=== PATIENT | male | born 1950 | race Caucasian/White ===

== ENCOUNTER 2024-01-29 09:06 | Inpatient (IN) | payer MEDICARE ==
[2024-01-29] MEDS ORDERED: Polyethylene Glycol 3350 Powder 17 GM Packet PO PRN (14:07)
[2024-01-29] MEDS ORDERED: Melatonin 3 MG Tab PO PRN (14:07)
[2024-01-29] MEDS ORDERED: guaiFENesin 600 MG Tab.ER PO PRN (15:24)
[2024-01-29] MEDS ORDERED: oxyCODONE 5 MG Tab PO PRN (15:24)
[2024-01-29] MEDS ORDERED: Acetaminophen 325 MG Tab PO PRN (15:24)
[2024-01-29] MEDS: Labetalol 20 MG/4 ML Syringe IVPUSH ONE (15:38)
[2024-01-29] MEDS ORDERED: Labetalol 20 MG/4 ML Syringe IVPUSH PRN (16:06)
[2024-01-29 16:55] LABS: BILIRUBIN,URINE NEGATIVE (NEGATIVE); GLUCOSE,URINE >1000 mg/dL (NORMAL); KETONES,URINE NEGATIVE (NEGATIVE); LEUKOCYTE ESTERASE,URINE NEGATIVE (NEGATIVE); NITRITE,URINE NEGATIVE (NEGATIVE); OCCULT BLOOD,URINE LARGE (NEGATIVE); PROTEIN,URINE NEGATIVE (NEGATIVE); UROBILINOGEN,URINE 1 mg/dL (NEGATIVE)
[2024-01-29 16:57] LABS: APPEARANCE,URINE CLEAR (CLEAR); BACTERIA,URINE FEW (NS); COLOR,URINE YELLOW (YELLOW); RBC,URINE 20-30 (0-5); SQUAMOUS EPITHELIAL CELLS,UR FEW (NS,R,O); WBC,URINE 0-5 (0-5)
[2024-01-29] MEDS: metFORMIN 500 MG Tab PO SCH (17:16)
[2024-01-29] MEDS: atorvaSTATin 40 MG Tab PO SCH (17:16)
[2024-01-29] MEDS: Tamsulosin 0.4 MG Cap.ER PO SCH (17:16)
[2024-01-29] MEDS: Pantoprazole 40 MG Tab.CR PO SCH (17:17)
[2024-01-29] MEDS: Metoprolol Tartrate 25 MG Tab PO SCH (21:10)
[2024-01-30] MEDS ORDERED: Empagliflozin 25 MG Tab PO SCH ×2 (09:00)
[2024-01-30] MEDS: Furosemide 40 MG Tab PO SCH (09:22)
[2024-01-30] MEDS: Aspirin 81 MG Tab.EC PO SCH (09:22)
[2024-01-30] MEDS: Ferrous Sulfate 325 MG Tab PO SCH (09:22)
[2024-01-30] MEDS: Lisinopril 5 MG Tab PO SCH (09:23)
[2024-01-30] MEDS: Clopidogrel 75 MG Tab PO SCH (09:23)
[2024-01-30] MEDS: Multivitamins with Iron/Calcium/Folic Acid/Minerals Tab PO SCH (09:23)
[2024-01-31] MEDS: Sodium Chloride 0.9% 10 ML Syringe FLUSH PRN (12:48)
[2024-01-31] MEDS ORDERED: 50% Dextrose in Water 50 ML Syringe IVPUSH PRN (17:19)
[2024-01-31] MEDS ORDERED: Glucagon,Human Recombinant 1 MG Vial IM PRN (17:19)
[2024-01-31] MEDS ORDERED: Insulin Lispro 100 Unit/ML 3 ML KwikPen SUBCUT ONE (17:42)
[2024-01-31] MEDS: Insulin Lispro 100 Unit/ML 3 ML KwikPen SUBCUT SCH (17:43)
[2024-02-04] MEDS: Acetaminophen 325 MG Tab PO PRN (08:57)
[2024-02-05] MEDS ORDERED: Sodium Chloride 0.65% Nasal Spray 45 ML Bottle NAS PRN (09:41)
[2024-02-05] MEDS: Acetaminophen/HYDROcodone 325-7.5 MG Tab PO PRN (12:06)
[2024-02-05 12:12] LABS: HEMATOCRIT 27.1 % (38.3-50.1); MEAN CORPUSCULAR HEMOGLOBIN 29.5 pg (27.0-33.3); MEAN CORPUSCULAR HGB CONC 33.2 g/dL (28.7-35.3); RED BLOOD CELL COUNT 3.04 x10(6)uL (3.90-5.90); RED CELL DISTRIBUTION WIDTH 16.7 % (12.4-15.0); WHITE BLOOD CELL COUNT,WBC 10.4 x10-3/uL (3.2-10.1)
[2024-02-05 12:15] LABS: BLOOD UREA NITROGEN,BUN 23 mg/dL (7-18); BUN/CREATININE RATIO 20.9 (9-20); CALCIUM 8.5 mg/dL (8.6-10.2); CARBON DIOXIDE,CO2 27 mmol/L (21-32); CHLORIDE,CL 102 mmol/L (100-110); CREATININE 1.1 mg/dL (0.70-1.30); EST CRCL DRUG DOSING (CG) 69.61 mL/min; ESTIMATED GFR 72 mL/min (>60); GLUCOSE RANDOM 191 mg/dL (80-116); POTASSIUM,K 3.5 mmol/L (3.5-5.3); SODIUM,NA 136 mmol/L (135-145)
[2024-02-08 03:15] LABS: BILIRUBIN,URINE NEGATIVE (NEGATIVE); GLUCOSE,URINE NORMAL (NORMAL); KETONES,URINE NEGATIVE (NEGATIVE); LEUKOCYTE ESTERASE,URINE MODERATE (NEGATIVE); NITRITE,URINE NEGATIVE (NEGATIVE); OCCULT BLOOD,URINE LARGE (NEGATIVE); PROTEIN,URINE 30 mg/dL (NEGATIVE); UROBILINOGEN,URINE 4 mg/dL (NEGATIVE)
[2024-02-08 03:22] LABS: APPEARANCE,URINE SLIGHTLY CLOUDY (CLEAR); COLOR,URINE YELLOW (YELLOW)
[2024-02-08 03:23] LABS: BACTERIA,URINE FEW (NS); HYALINE CASTS,URINE OCCASIONAL (NS); SQUAMOUS EPITHELIAL CELLS,UR OCCASIONAL (NS,R,O)
== END 2024-02-14 11:00 | DRG 947 ==
LOC: FB.MS 12:16
PROVIDERS: ADMIT Family Medicine; ATTEND Family Medicine
DX: R53.81 Other malaise (principal); I21.4 Non-ST elevation (NSTEMI) myocardial infarction; E78.00 Pure hypercholesterolemia, unspecified; E11.9 Type 2 diabetes mellitus without complications; I10 Essential (primary) hypertension; I25.10 Atherosclerotic heart disease of native coronary artery without angina pectoris; R53.1 Weakness; I25.5 Ischemic cardiomyopathy; L89.159 Pressure ulcer of sacral region, unspecified stage; Z95.1 Presence of aortocoronary bypass graft; Z79.82 Long term (current) use of aspirin; Z79.84 Long term (current) use of oral hypoglycemic drugs; Z79.02 Long term (current) use of antithrombotics/antiplatelets; Z79.899 Other long term (current) drug therapy
CPT/HCPCS: 36415; 51701; 51798; 73562-LT; 73721-LT; 80048; 81001; 82947; 83036; 85027; 87086; 97110-GO; 97110-GP; 97112-GP; 97116-GP; 97161-GP; 97165-GO; 97530-GO; 97530-GP; 97535-GO; 97542-GO; 99305; 99307; 99308; 99309; 99316; A9270-GY; C1758; J1815; J1920; J3490

== ENCOUNTER 2024-07-04 00:10 | Emergency (ER) | payer MEDICARE, OTHER ==
[2024-07-04] MEDS ORDERED: Sodium Chloride 0.9% 10 ML Syringe FLUSH PRN (00:14)
[2024-07-04 00:45] LABS: BASOPHILS PERCENT AUTO 0.4 % (0.3-3.8); EOSINOPHILS ABSOLUTE AUTO 0.2 x10-3/uL (0.0-0.6); EOSINOPHILS PERCENT AUTO 2.6 % (0.1-6.8); HEMATOCRIT 36.8 % (38.3-50.1); HEMOGLOBIN 12.3 g/dL (12.9-17.7); LYMPHOCYTES ABSOLUTE AUTO 1.4 x10-3/uL (0.5-4.5); LYMPHOCYTES PERCENT AUTO 17.1 % (15.8-45.3); MEAN CORPUSCULAR HEMOGLOBIN 28.8 pg (27.0-33.3); MEAN CORPUSCULAR HGB CONC 33.3 g/dL (28.7-35.3); MEAN CORPUSCULAR VOLUME 86.5 fL (80.8-98.7); MEAN PLATELET VOLUME 9.1 fL (6.7-11.0); MONOCYTES ABSOLUTE AUTO 0.6 x10-3/uL (0.0-1.2); MONOCYTES PERCENT AUTO 7.8 % (5.5-15.2); NEUTROPHILS ABSOLUTE AUTO 5.8 x10-3/uL (1.7-6.9); NEUTROPHILS PERCENT AUTO 72.1 % (40.3-71.8); PLATELET COUNT,PLT 204 x10(3)uL (117-477); RED BLOOD CELL COUNT 4.26 x10(6)uL (3.90-5.90); RED CELL DISTRIBUTION WIDTH 18.6 % (12.4-15.0)
[2024-07-04] MEDS: Labetalol 20 MG/4 ML Syringe IVPUSH ONE (00:48)
[2024-07-04 00:50] LABS: BLOOD UREA NITROGEN,BUN 34 mg/dL (7-18); BUN/CREATININE RATIO 21.3 (9-20); CALCIUM 9.4 mg/dL (8.6-10.2); CARBON DIOXIDE,CO2 27 mmol/L (21-32); CHLORIDE,CL 101 mmol/L (100-110); CREATININE 1.6 mg/dL (0.70-1.30); EST CRCL DRUG DOSING (CG) 46.59 mL/min; ESTIMATED GFR 46 mL/min (>60); GLUCOSE RANDOM 165 mg/dL (80-116); SODIUM,NA 140 mmol/L (135-145)
[2024-07-04] MEDS: Tenecteplase 50 MG Kit IV ONE (01:00)
[2024-07-04 01:02] LABS: A/G RATIO 0.9; ALANINE AMINOTRANSFERASE,ALT 36 U/L (12-36); ALBUMIN 3.8 g/dL (3.2-4.6); ALKALINE PHOSPHATASE 88 IU/L (56-112); ASPARTATE AMNIOTRANSFERASE,AST 14 IU/L (5-25); BILIRUBIN TOTAL 0.6 mg/dL (0.1-1.3)
[2024-07-04] MEDS ORDERED: LORazepam 0.5 MG Tab ONE (01:03)
[2024-07-04] MEDS ORDERED: LORazepam 2 MG/ML SDV ONE (01:04)
[2024-07-04] MEDS: LORazepam 2 MG/ML SDV IVPUSH ONE (01:23)
== END 2024-07-04 02:40 ==
LOC: FB.ED 00:10
DX: I63.9 Cerebral infarction, unspecified (principal); I10 Essential (primary) hypertension; E78.00 Pure hypercholesterolemia, unspecified; I25.2 Old myocardial infarction; E11.9 Type 2 diabetes mellitus without complications; Z95.5 Presence of coronary angioplasty implant and graft; Z95.1 Presence of aortocoronary bypass graft; Z79.82 Long term (current) use of aspirin; Z79.02 Long term (current) use of antithrombotics/antiplatelets; Z79.84 Long term (current) use of oral hypoglycemic drugs; Z79.899 Other long term (current) drug therapy
CPT/HCPCS: 36415; 37195; 70450; 80053; 82947; 84484; 85025; 93005; 93010; 96374; 96375; 99285; J1920; J2060; J3101